=== PATIENT | female | born 1990 | race Hispanic/Latino ===

== ENCOUNTER 2023-11-20 08:23 | Emergency (ER) | payer OTHER ==
[~2023-11-20] VITALS: Ht 162.6 cm; Wt 55.3 kg
[2023-11-20 09:14] VITALS: BP 107/77; PULSE 77; RESP 18; O2SAT 100
== END 2023-11-20 09:24 | disposition home or self-care (01) ==
LOC: EDH 08:23
DX: T23.001A Burn of unspecified degree of right hand, unspecified site, initial encounter (principal); Z98.890 Other specified postprocedural states; X10.2XXA Contact with fats and cooking oils, initial encounter; Y93.89 Activity, other specified; Y92.89 Other specified places as the place of occurrence of the external cause; Y99.8 Other external cause status
CPT/HCPCS: 99281

== ENCOUNTER 2025-09-24 11:18 | Emergency (ER) | payer SELFPAY ==
[~2025-09-24] VITALS: Ht 162.6 cm; Wt 54.4 kg
--- NOTE | 2025-09-24 11:32 | ERN ---
ED Note History of Present Illness Stated Complaint: UTI Chief Complaint: Low Back Pain/Injury Time Seen by MD: 11:19 Time Seen by Midlevel: 11:15 Dictation: Ms Ventura is a 35-year-old female with no reported chronic health issues who presented to the emergency department this morning for evaluation of low back pain. She reports right flank/low back pain onset 09/21. He denies trauma. She states she has a history of previous severe kidney infection requiring hospitalization for IV antibiotics. She denies having fever, chills, shortness of breath, cough, chest pain, palpitations, abdominal pain, nausea, vomiting, diarrhea, hematuria, pain with urination, headache, dizziness, or focal weakness/paresthesia. She does not believe she has ever been diagnosed with kidney stones. She states she did not seek treatment earlier because she did not want to disrupt May plans. She declines analgesic at this time. Allergies: Coded Allergies: No Known Food Allergies (Unverified Allergy, Unknown, 09/24/25) Home Meds Active Scripts Ibuprofen (Ibuprofen) 600 Mg Tablet, 600 MG PO Q6H PRN for PAIN, #15 TAB 0 Refills Prov:RAÚL CEBALLOS [facility] 09/24/25 Nitrofurantoin Macrocrystal (Nitrofurantoin) 100 Mg Capsule, 1 CAP PO BID for 7 Days, #14 CAP 0 Refills Prov:RAÚL CEBALLOS [facility] 09/24/25 Ondansetron (Ondansetron Odt) 4 Mg Tab.rapdis, 4 MG PO Q6HPRN PRN for nausea, #15 TAB 0 Refills Prov:RAÚL CEBALLOS [facility] 09/24/25 Past Medical History Past Medical History: No Pertinent History Surgical History: None, PSYCH History: no pertinent psych hx Social History: Negative, Lives with family RN Note Reviewed/Agreed w/PFSH: Yes Review of System Dictation REVIEW OF SYSTEMS: CONSTITUTIONAL: Patient denies fevers, chills, sweats and weight changes. EYES: Patient denies any visual symptoms. EARS, NOSE, AND THROAT: No difficulties with hearing. No symptoms of rhinitis or sore throat. CARDIOVASCULAR: Patient denies chest pains, palpitations, orthopnea and paroxysmal nocturnal dyspnea. RESPIRATORY: No dyspnea on exertion, no wheezing or cough. GI: No nausea, vomiting, diarrhea, constipation, abdominal pain, hematochezia or melena. : No urinary hesitancy or dribbling. No nocturia or urinary frequency. No abnormal urethral discharge. No hematuria. No history of kidney stones. Reports low back pain; worse on right. States history of "severe kidney infection" requiring admission for IV antibiotics. MUSCULOSKELETAL: No myalgias or arthralgias. NEUROLOGIC: No chronic headaches, no seizures. Patient denies numbness, tingling or weakness. PSYCHIATRIC: Patient denies problems with mood disturbance. No problems with anxiety. ENDOCRINE: No excessive urination or excessive thirst. DERMATOLOGIC: Patient denies any rashes or skin changes. Initial Vital Sign VS Vital Signs Date Time Temp Pulse Resp B/P (MAP) Pulse Ox O2 Delivery O2 Flow Rate FiO2 09/24/25 11:19 98.2 64 20 133/83 100 Room Air 09/24/25 13:10 0 21 Physical Exam Dictation Vital signs: Reviewed. Constitutional: No acute distress. Uncomfortable. Afebrile. Pleasant. Accompanied by daughter. Head/Face: Normocephalic, atraumatic. Eyes: Periorbital areas with no swelling, redness, or edema. Lids and lashes are normal. Conjunctival injection is absent. Sclera anicteric. Pupils equal, round, reactive to light. ENT: Pinnas intact and no signs of trauma or erythema. Ear canals clear and no discharge. TMs no erythema. No nasal discharge or bleeding noted. Oropharynx with no exudate, redness, swelling, masses, exudates, or evidence of obstruction. Uvula midline. Mucous membranes moist. Neck: Trachea midline, no masses palpated, and no cervical lymphadenopathy. No swelling. Supple, full range of motion. Chest/Axilla: No tenderness, no crepitus, no paradoxical movement, no retractions. Cardiovascular: Regular rate, regular rhythm, no murmur, no gallops. Symmetric pulses. No peripheral edema. Respiratory: Respirations even and unlabored. Lung sounds clear; no wheezes, rales or rhonchi. Room air spo2 99% Gastrointestinal: Inspection is normal. No distention is appreciated. Bowel sounds are normal. No mass or organomegaly . There is no tenderness. No rebound. No rigidity. No voluntary or involuntary guarding. No Baugh's sign. : + CVA tenderness bilaterally; worse on right. Neurological: Normal speech, gross motor function intact, gross sensory func tion intact. No focal weakness/Paresthesia. Musculoskeletal/Extremities: All extremities have full range of motion, no pain or tenderness on palpation. Symmetric pulses. Integumentary: Intact. Skin is normal color, warm and dry. Cap refill less than 3 seconds. Results (Laboratory/Radiology) Laboratory/Radiology Laboratory Tests Test 09/24/25 11:30 Urine Color COLORLESS (YELLOW) Urine Appearance CLEAR (CLEAR) Urine pH 6.0 (5.0-8.0) Urine Specific Caspian 1.005 (1.001-1.031) Urine Protein NEGATIVE mg/dL (NEGATIVE) Urine Glucose (UA) NEGATIVE mg/dL (NEGATIVE) Urine Ketones 10 mg/dL (NEGATIVE) H Urine Occult Blood MODERATE (NEGATIVE) H Urine Nitrate NEGATIVE (NEGATIVE) Urine Bilirubin NEGATIVE mg/dL (NEGATIVE) Urine Urobilinogen 0.2 mg/dL (0.2-1.0) Urine Leukocyte Esterase 25 Tyshawn/uL (NEGATIVE) H Urine RBC 6-10 /HPF (0-1) H Urine WBC 6-10 /HPF (0-1) H Urine Squamous Epithelial Cells Few /HPF (0-2) Urine Bacteria Few /HPF (None Seen) Urine HCG, Qualitative NEGATIVE (NEGATIVE) Labs Reviewed?: Yes CT Scan Comment: PATIENT: RAMIRO VENTURA MR#: [id number] : 1990 SEX: F AGE: 35 LOCATION: [facility] ORDER [id number] STATUS: [facility] REPORT#: [id number] SERVICE 1240 REASON: flank pain , + blood in urine ORDERING PHYSICIAN: RAÚL CEBALLOS PROCEDURE: ABD PEL WO - CT ABDOMEN/PELVIS W/O CONTRAST EXAM: CT Abdomen and Pelvis Without IV contrast CLINICAL HISTORY: flank pain , + blood in urine TECHNIQUE: Axial computed tomography images of the abdomen and pelvis without intravenous contrast. CONTRAST: No IV contrast. COMPARISON: None provided. FINDINGS: LUNG BASES: The lung bases appear clear. No pleural effusions are seen. LIVER: Unremarkable. GALLBLADDER AND BILE DUCTS: The gallbladder appears within normal limits. No radioopaque gallstones are seen. No biliary ductal dilatation is evident. PANCREAS: Unremarkable. SPLEEN: Unremarkable. ADRENAL GLANDS: Unremarkable. KIDNEYS, URETERS, AND BLADDER: The kidneys appear within normal limits. There is no hydronephrosis or hydroureter. No urinary calculi are seen. STOMACH AND BOWEL: Unremarkable appearance of the stomach and bowel. No evidence of bowel obstruction. No evidence suggesting enteritis or colitis. APPENDIX: No evidence of acute appendicitis on CT examination. PERITONEUM: No free fluid. No free air. LYMPH NODES: No lymphadenopathy is evident. REPRODUCTIVE: Unremarkable as visualized. VASCULATURE: No evidence of abdominal aortic aneurysm. BONES: No aggressive appearing osseous lesion. No acute osseous pathology evident. IMPRESSION: No acute intra-abdominal or pelvic abnormality. There is no hydronephrosis or hydroureter. No urinary calculi are seen. /[place] DICTATED BY: NANCY CHASE DO DATE: 09/24/251645 ELECTRONICALLY SIGNED BY: NANCY CHASE DO DATE: 09/24/251645 ED Course ED Course Orders Procedure Category Date Status Time Urinalysis Profile LAB 09/24/25 Complete 11:19 ,Urine Test LAB 09/24/25 Complete 11:19 Culture Urine ADRI 09/24/25 In Process 12:30 Ceftriaxone 1g Vial PHA 09/24/25 Complete (Rocephine 1g Inj) 13:00 Ct Abdomen/Pelvis W/O CT 09/24/25 Resulted Contrast 12:40 Ceftriaxone 1g Vial PHA 09/24/25 Complete (Rocephine 1g Inj) 13:30 Current Medications Medications (Trade) Dose Ordered Sig/Cruz Route PRN Reason Start Time Stop Time Status Last Admin Dose Admin Ceftriaxone Sodium (ROCEphine 1G INJ) 1 gm ONCE IM 09/24/25 13:00 09/24/25 13:09 DC Ceftriaxone Sodium (ROCEphine 1G INJ) 1 gm ONCE ONCE IM 09/24/25 13:30 09/24/25 13:31 DC 09/24/25 13:22 Vital Signs Date Time Temp Pulse Resp B/P (MAP) Pulse Ox O2 Delivery O2 Flow Rate FiO2 09/24/25 16:25 98.1 67 16 132/73 100 Room Air* 0 21 09/24/25 13:10 98.1 64 17 137/73 100 Room Air* 0 21 09/24/25 11:19 98.2 64 20 133/83 100 Room Air Evaluation included laboratory studies, urinalysis, testing, and imaging. Urine test was negative. Urinalysis with notable for positive blood, ketones, and leukocyte esterase with 6-10 WBCs per high-power field, concerning for urinary tract infection. No gross hematuria or nitrites noted. Given flank pain and prior history of pyelonephritis, CT scan of the abdomen and pelvis was obtained and demonstrated no evidence of nephrolithiasis, obstruction, or acute intra-abdominal pathology. Patient received dose Rocephin IM in the emergency department. She remained clinically stable without fever, hypotension, nausea, vomiting, or worsening pain. Given raised her imaging, stable vital signs, and treatment initiated, patient was deemed stable for discharge. Patient was discharged with nitrofurantoin for outpatient management of urinary tract infection and Zofran as needed for nausea. She was counseled on return precautions and the importance of close follow up given her prior history with kidney infection. Medical Decision Making MDM MDM: Differential diagnosis: Acute pyelonephritis, urinary tract infection, nephrolithiasis, acute low back pain, lumbar strain Rationale: Tests considered and ordered secondary to shared decision making include: Examination, lab Previous outside records reviewed: Old ER visits. Risk of complication and/or morbidity or mortality of patient management: None Medications-Per medication reconciliation Need for hospitalization: Patient does not meet criteria for hospitalization. Need for emergency major/minor surgery: No There are no social concerns with this patient. Prescription drug management: Zofran, nitrofurantoin, ibuprofen Prescriptions will include symptomatic care Patient's prior external medical records from other ER visits were reviewed by me as indicated. Prior testing and results from previous visits were reviewed. Prior tests were taken into account with medical decision making and resource utilization, independent historian/historians were used to obtain complete medical history. I independently interpreted the test that were performed, results were reviewed by me and considered findings on radiology if ordered. Medical management and examination interpretation discussions were had by me with other qualified healthcare professionals as indicated for the patient's care. DX & DISP Disposition: Discharge Departure Impression: Primary Impression: UTI (urinary tract infection) Additional Impressions: Back pain, Flank pain Condition: Stable Scripts Ibuprofen (Ibuprofen) 600 Mg Tablet 600 MG PO Q6H PRN for PAIN, #15 TAB 0 Refills Prov: RAÚL CEBALLOS [facility] 09/24/25 Nitrofurantoin Macrocrystal (Nitrofurantoin) 100 Mg Capsule 1 CAP PO BID for 7 Days, #14 CAP 0 Refills Prov: RAÚL CEBALLOS [facility] 09/24/25 Ondansetron (Ondansetron Odt) 4 Mg Tab.rapdis 4 MG PO Q6HPRN PRN for nausea, #15 TAB 0 Refills Prov: RAÚL CEBALLOS [facility] 09/24/25 Additional Instructions: Your symptoms were consistent with urinary tract infection in the associated low back/flank pain. Imaging today did not show kidney stones or other acute abnormalities. Because of your prior kidney infection, close follow up in prompt return for worsening symptoms are important. Continue antibiotic nitrofurantoin twice daily for seven days. Complete the full course even if symptoms improve. May take ibuprofen 600 mg every 6 hours as needed for discomfort. May take Zofran ODT every 6 hours as needed for nausea. Drink plenty of fluids. Avoid alcohol while taking antibiotics. Rest as needed. Gentle activity as tolerated. Follow up with your primary care provider within 2-3 days. You will be contacted if urine culture results require change in antibiotics. Return to the emergency department immediately if you develop: Fever/chills, worsening back/flank pain, persistent vomiting/inability to keep fluids down, new abdominal pain, increasing blood in urine, dizziness/weakness/fainting, or symptoms not improving after 48-72 hours of antibiotics. Referrals: NONE (PCP) Time of Disposition: 16:07 I performed a substantive portion of the visit. I have reviewed and personally made and approve the management plan that is documented in the notes by myself with TIM/resident. I acknowledged full responsibility for the patient's management plan. RAÚL CEBALLOS [facility] Sep 24, 2025 11:32 TERRANCE LEVY DO Sep 24, 2025 17:52
[2025-09-24 12:10] LABS: APPEARANCE,URINE CLEAR (CLEAR); GLUCOSE, URINE (UA) NEGATIVE (NEGATIVE); LEUKOCYTE ESTERASE ,URINE 25 Leu/uL (NEGATIVE); NITRATE,URINE NEGATIVE (NEGATIVE); OCCULT BLOOD,URINE MODERATE (NEGATIVE)
[2025-09-24 12:13] LABS: ADD UA MICROSCOPIC YES
[2025-09-24 12:14] LABS: SQUAMOUS EPITHELIAL CELL,UR Few /HPF (0-2)
[2025-09-24 12:20] LABS: HCG,QUALITATIVE URINE NEGATIVE (NEGATIVE)
--- NOTE | 2025-09-24 15:47 | HMCIMG ---
EXAM: CT Abdomen and Pelvis Without IV contrast CLINICAL HISTORY: flank pain , + blood in urine TECHNIQUE: Axial computed tomography images of the abdomen and pelvis without intravenous contrast. CONTRAST: No IV contrast. COMPARISON: None provided. FINDINGS: LUNG BASES: The lung bases appear clear. No pleural effusions are seen. LIVER: Unremarkable. GALLBLADDER AND BILE DUCTS: The gallbladder appears within normal limits. No radioopaque gallstones are seen. No biliary ductal dilatation is evident. PANCREAS: Unremarkable. SPLEEN: Unremarkable. ADRENAL GLANDS: Unremarkable. KIDNEYS, URETERS, AND BLADDER: The kidneys appear within normal limits. There is no hydronephrosis or hydroureter. No urinary calculi are seen. STOMACH AND BOWEL: Unremarkable appearance of the stomach and bowel. No evidence of bowel obstruction. No evidence suggesting enteritis or colitis. APPENDIX: No evidence of acute appendicitis on CT examination. PERITONEUM: No free fluid. No free air. LYMPH NODES: No lymphadenopathy is evident. REPRODUCTIVE: Unremarkable as visualized. VASCULATURE: No evidence of abdominal aortic aneurysm. BONES: No aggressive appearing osseous lesion. No acute osseous pathology evident. IMPRESSION: No acute intra-abdominal or pelvic abnormality. There is no hydronephrosis or hydroureter. No urinary calculi are seen. /[place]
[2025-09-24] MEDS ORDERED: ONDA-243 PO (16:05)
[2025-09-24] MEDS ORDERED: NITR100C PO (16:05)
[2025-09-24] MEDS ORDERED: IBUP-1492 PO (16:05)
[2025-09-24 16:25] VITALS: BP 132/73; PULSE 67; RESP 16; TEMP 98.1; O2SAT 100
== END 2025-09-24 16:39 | disposition home or self-care (01) ==
LOC: EDH 11:18
DX: N39.0 Urinary tract infection, site not specified (principal); M54.50 Low back pain, unspecified; R10.A1 Flank pain, right side; Z98.890 Other specified postprocedural states
CPT/HCPCS: 99285; 74176; 87086; 87186; 81001; 81025; 96372; J0696